=== PATIENT | female | born 1940 | race Caucasian/White ===

== ENCOUNTER 2019-09-19 10:08 | Outpatient (CLI) | payer MEDICARE, BC, SELFPAY ==
--- NOTE | 2019-09-19 10:14 | USCV_ITS ---
Neelam Nieves Age: 79 Gender: F : 1940 Exam Date: 09/19/2019 10:40 Ordering Phys: Yuko Bell Technologist: Les Bustillos Exam Location: [facility] [place] Indication: STENOSIS Risk Factors: Previous Vascular Surgery: Right Brachial BP: / Left Brachial BP: / Right Left Velocity (cm/s) Spectral Plaque Velocity (cm/s) Spectral Plaque Syst/Diast Broadening Syst/Diast Broadening 72.80/ 9.90 Prox CCA 67.50 / 14.50 42.50/ 8.80 Mid CCA 61.50 / 12.00 38.10/ 6.60 Distal CCA 42.70 / 9.20 89.50/ 16.60 Prox ICA 132.90/ 33.80 99.20/ 14.30 Mid ICA 116.00/ 27.80 75.00/ 16.50 Distal ICA 100.30/ 18.10 96.00 ECA 60.50 2.33 ICA/CCA 1.89 Antegrade Vertebral Antegrade 89.30/ 15.40 cm/s 21.60/ 7.50 cm/s Tri Subclavian Tri 175.6 140.7 0 0 CONCLUSIONS Right ICA stenosis <50%. Left ICA stenosis 50-69%. Mild atheromatous plaque left carotid bulb/ICA. Normal antegrade Doppler flow noted in the right vertebral artery. Normal antegrade Doppler flow noted in the left vertebral artery. Ang Stratton MD (Electronically Signed) Final Date: 19 September 2019 16:43 S
== END 2019-09-19 10:09 | disposition home or self-care (01) ==
LOC: RAD 10:09
PROVIDERS: PCP Family Medicine; Visit Provider Nurse Practitioner Family
DX: I65.23 Occlusion and stenosis of bilateral carotid arteries (principal)
CPT/HCPCS: 93880

== ENCOUNTER → 2020-10-02 12:45 | Outpatient (BNVA) | payer MEDICARE, BC, SELFPAY | PROVIDERS: Family Provider Family Medicine; PCP Family Medicine; Visit Provider Internal Medicine Cardiovascular Disease | DX: I48.91 Unspecified atrial fibrillation (principal); R53.1 Weakness; N18.9 Chronic kidney disease, unspecified; Z79.01 Long term (current) use of anticoagulants; R07.9 Chest pain, unspecified; I48.20 Chronic atrial fibrillation, unspecified | CPT/HCPCS: 80053; 84443; 85025 ==

== ENCOUNTER 2020-12-11 09:48 | Outpatient (CLI) | payer MEDICARE, BC, SELFPAY ==
--- NOTE | 2020-12-11 10:15 | USCV_ITS ---
Neelam Nieves Age: 80 Gender: F : 1940 Exam Date: 12/11/2020 10:05 Ordering Phys: Jil Couch MD ([email or web address]) Technologist: STEPHY [place]am [place] [facility] [place] Indication: a fib, other specified BP: 136 / 76 HR: 93 Rhythm: Sinus Technical Quality: Adequate MEASUREMENTS (Male / Female) Normal Values 2D ECHO LV Diastolic Diameter PLAX 4.4 cm 4.2 - 5.9 / 3.9 - 5.3 cm LV Systolic Diameter PLAX 3.2 cm IVS Diastolic Thickness 1.7 cm 0.6 - 1.0 / 0.6 - 0.9 cm IVS Systolic Thickness 2.1 cm LVPW Diastolic Thickness 1.5 cm 0.6 - 1.0 / 0.6 - 0.9 cm LVPW Systolic Thickness 2.3 cm RV Chamber Size 4.3 cm LVOT Diameter 2.0 cm LV Ejection Fraction 2D Teich 54.5 % LV Ejection Fraction MOD 2C 50.2 % LV Ejection Fraction 2C AL 50.5 % LA Diameter 3.8 cm LA Width 3.7 cm LA Height 4.5 cm RA Width 4.3 cm RA Height 5.0 cm Aorta at Sinotubular Diameter 2.6 cm DOPPLER AV Peak Velocity 116.0 cm/s LVOT Peak Velocity 57.0 cm/s AV Area Cont Eq vti 2.1 cm squared AV Area Cont Eq pk 1.6 cm squared TR Peak Velocity 354.0 cm/s TR Peak Gradient 50.1 mmHg TV Peak E Velocity 55.0 cm/s PV Peak Velocity 76.0 cm/s RV Acceleration Time 0.1 s RV Ejection Time 0.3 s RV AcT/ET 0.3 FINDINGS Left Ventricle Normal left ventricular size and systolic function, EF 65 % (visual). No regional wall motion abnormalities. Mild left ventricular hypertrophy. Right Ventricle Normal right ventricular size and systolic function. Right Atrium Moderately increased right atrial size. Left Atrium Moderately increased left atrial size. Mitral Valve Thickened mitral valve. Moderate mitral annular calcification. Moderate mitral valve regurgitation. Aortic Valve Thickened aortic valve. Tricuspid Valve No gross abnormalities noted.[id number] tricuspid valve regurgitation. Peak gradient of 50 with estimated PA pressure of 60mmHg. Mean pulmonary artery pressure of 35 mmHg Pulmonic Valve Structurally normal pulmonic valve. Pericardium No pericardial effusion. Aorta Normal aortic annulus size. CONCLUSIONS Normal left ventricular size and systolic function, EF 65 % (visual). No regional wall motion abnormalities. Mild left ventricular hypertrophy. Moderate biatrial enlargement. Thickened mitral valve. Moderate mitral annular calcification. Moderate mitral valve regurgitation. [id number] tricuspid valve regurgitation. Estimated PA pressure of 60mmHg. Moderate pulmonary hypertension with an estimated mean PA pressure of 35 mmHg. There is no pericardial effusion. No previous study is available for comparison. Dr Jil Couch MD [facility] (Electronically Signed) Final Date: 12 December 2020 00:31 S
== END 2020-12-11 09:49 | disposition home or self-care (01) ==
LOC: US 09:51
PROVIDERS: PCP Family Medicine; Visit Provider Internal Medicine Cardiovascular Disease
DX: I48.91 Unspecified atrial fibrillation (principal); I08.1 Rheumatic disorders of both mitral and tricuspid valves; I27.20 Pulmonary hypertension, unspecified
CPT/HCPCS: 93306

== ENCOUNTER 2021-04-03 11:33 | Emergency (ER) | payer MEDICARE, BC, SELFPAY ==
[2021-04-03 12:11] VITALS: BP 169/103; PULSE 67; RESP 22; TEMP 36.6; O2SAT 88; BMI 38.8
--- NOTE | 2021-04-03 12:39 | XRR_ITS ---
PROCEDURE INFORMATION: Exam: XR Chest Exam date and time: 04/03/2021 12:39 PM Age: 81 years old Clinical indication: Dyspnea TECHNIQUE: Imaging protocol: XR of the chest. Views: 1 view. COMPARISON: No relevant prior studies available. FINDINGS: Lungs: There is bibasilar atelectasis and small bilateral pleural effusions. Pleural spaces: See Lungs finding. Heart/Mediastinum: Unremarkable. No cardiomegaly. Bones/joints: Unremarkable. Soft tissues: Surgical clips are present in the right axilla. XR/XR chest 1V portable [id number] IMPRESSION: There is bibasilar atelectasis with small bilateral pleural effusions.
--- NOTE | 2021-04-03 12:46 | ED_ITS ---
HPI - SOB/Dyspnea General: Chief Complaint: Shortness of Breath/Dyspnea Stated Complaint: Dr. patel unsure what for/ something with heart Time Seen by Provider: 04/03/21 12:33 History of Present Illness: HPI Narrative: 81 year old female who presents to ER for shortness of breath. Reports shortness of breath has been going on for a couple of months and has been getting worse. Reports SOB when walking around her house and it feels like she's running a mile . Denies chest pain. Reports she was at her PCP today and they did an EKG and said there was fluid around heart. She is also seen by Dr. Couch who placed her on a heart monitor yesterday. Has a history of A. fib and is on Apixaban. Has been vaccinated against COVID. MD elicited complaint: shortness of breath Onset (ago): week(s) Associated symptoms: Deny abdominal pain, chest pain or fever(s) Review of Systems Const: Denies: fever(s), chills, body aches, change in appetite, fatigue or malaise ENMT: Denies: throat pain, ear or mastoid pain, nasal discharge or nasal congestion Card: Denies: chest pain Resp: Denies: dyspnea, productive cough or non-productive cough GI: Denies: abdominal pain : Denies: flank pain, difficulty voiding, dysuria, urinary frequency or urinary urgency Skin/Breast: Denies: rash or pruritus PFSH ED PFSH: Medical History Benign essential HTN Bilateral carotid artery disease Dyslipidemia (high LDL; low HDL) History of degenerative joint disease History of fibromyalgia History of hypertension Hx of breast cancer Hx of carotid artery stenosis Hx of hyperlipidemia Hx of obesity Obesity (BMI 35.0-39.9 without comorbidity) Surgical History History of bilateral knee replacement History of lumpectomy of right breast History of reconstruction of left breast Hx of cholecystectomy Hx of spinal surgery Family History Mother CAD (coronary artery disease) Father CAD (coronary artery disease) Sister Cancer Denies family history of Diabetes Clotting disorder Dementia Chronic kidney disease (CKD) Suicide Anesthesia complication Bleeding disorder Lung disease Stroke Social History Smoking and tobacco status: never smoked Alcohol intake: never Physical Exam Const: COMMON NORMALS: no acute distress GENERAL APPEARANCE: cooperative and comfortable ORIENTATION/CONSCIOUSNESS: Yes awake, Yes oriented to person, Yes oriented to place and Yes oriented to time Neck/C-Spine: COMMON NORMALS: no JVD Resp: COMMON NORMALS: normal respiratory effort, No retractions, No use of accessory muscles and clear to auscultation bilaterally AUSCULTATION: clear to auscultation bilaterally Cardio: COMMON NORMALS: no JVD, regular rate, regular rhythm and No murmurs present (Cardio) RATE: regular rate RHYTHM: regular rhythm GI: COMMON NORMALS: Soft to palpation and No hepatosplenomegaly present PALPATION: Yes Soft to palpation, No Tenderness to palpation present (GI), No G uarding due to palpation present (GI) and Yes No hepatosplenomegaly present Extremity: COMMON NORMALS: normal to inspection and capillary refill normal NARRATIVE EXTREMITY EXAM: Bilateral lower extremity 1+ edema. Neuro: SENSORIUM/ORIENTATION: Yes oriented to person, Yes oriented to place and Yes oriented to time Skin: COMMON NORMALS: no rashes or lesions noted GENERAL SKIN EXAM: no rashes or lesions noted Course Vital Signs: Vital signs: Vital Signs Temperature 97.9 F 04/03/21 12:11 Pulse Rate 80 04/03/21 15:44 Respiratory Rate 17 04/03/21 15:44 Blood Pressure 169/103 04/03/21 12:11 Pulse Oximetry 95 04/03/21 15:44 MDM - SOB/Dyspnea MDM Narrative: Medical decision making narrative: Patient again frustrated because of the length time it took to get labs back. Because of her body habitus she was an extremely difficult draw on the first blood was hemolyzed she refused to allow for the second draw. Her D-dimer was elevated we recommended a CTA of the chest to further evaluate. When she first came in her oxygen sat was somewhat low however that was due to poor placement of the oxygen sensor. I did have him do a home O2 evaluation and she did not qualify. COVID test is still pending the remainder the work-up was not completed including the CTA there is possibility she has a blood clot she refuses to stay for the remainder of the evaluation wishes to leave she is advised to return anytime for further to complete the evaluation. Lab Data: Labs: Lab Results 04/03/21 04/03/21 04/03/21 12:39 13:24 13:24 WBC 8.9 10^3/uL 10^3/ uL (4.0-10.0) RBC 4.70 10^6/uL 10^6 /uL (4.1-5.3) Hgb 14.1 g/dL g/dL (11.5-15.3) Hct 43.5 % % (37.0-47.0) MCV 92.6 fl fl (81-99) MCH 30.0 pg pg (28.0-34.0) MCHC 32.4 g/dL g/dL (30.0-36.0) RDW 12.9 % % (12.1-15.1) Plt Count 248 10^3/cmm 10^3 /cmm (130-400) MPV 10.5 fL H fL (7.4-10.4) Neut % (Auto) 60.9 % % Lymph % (Auto) 22.7 % % Swisher % (Auto) 12.3 % % Eos % (Auto) 2.8 % % Baso % (Auto) 0.8 % % Neut # (Auto) 5.41 10^3/uL 10^3 /uL (1.8-7.7) Lymph # (Auto) 2.0 10^3/uL 10^3/ uL (0.8-4.8) Swisher # (Auto) 1.1 10^3/uL H 10^ 3/uL (0.2-0.9) Eos # (Auto) 0.3 10^3/uL 10^3/ uL (0.0-0.8) Baso # (Auto) 0.1 10^3/uL 10^3/ uL (0.0-0.1) Nucleated RBC % (a uto) 0 % % Nucleated RBCs # 0.0 /100WBC /100W BC D-Dimer 1.45 ug/mIFEU H u g/mIFEU (0-0.59) Sodium Cancelled Potassium Cancelled Chloride Cancelled Carbon Dioxide Cancelled Anion Gap Cancelled BUN Cancelled Creatinine Cancelled GFR Calculation Cancelled Glucose Cancelled Calculated Osmolal ity Cancelled Lactic Acid Calcium Cancelled Total Bilirubin Cancelled AST Cancelled ALT Cancelled Alkaline Phosphata se Cancelled Creatine Kinase Cancelled C-Reactive Protein Cancelled NT-Pro-B Natriuret Pep Cancelled Total Protein Cancelled Albumin Cancelled Globulin Cancelled Procalcitonin Cancelled Coronavirus 229E ( PCR) SARS-CoV-2 (PCR) 04/03/21 04/03/21 13:55 15:20 WBC RBC Hgb Hct MCV MCH MCHC RDW Plt Count MPV Neut % (Auto) Lymph % (Auto) Swisher % (Auto) Eos % (Auto) Baso % (Auto) Neut # (Auto) Lymph # (Auto) Swisher # (Auto) Eos # (Auto) Baso # (Auto) Nucleated RBC % (a uto) Nucleated RBCs # D-Dimer Sodium Potassium Chloride Carbon Dioxide Anion Gap BUN Creatinine GFR Calculation Glucose Calculated Osmolal ity Lactic Acid 0.7 mmol/L mmol/L (0.5-2.2) Calcium Total Bilirubin AST ALT Alkaline Phosphata se Creatine Kinase C-Reactive Protein NT-Pro-B Natriuret Pep Total Protein Albumin Globulin Procalcitonin Coronavirus 229E ( PCR) Not detected (NOT DETECT) SARS-CoV-2 (PCR) Not detected (NOT DETECT) Discharge Plan Discharge Patient Disposition: Left Against Medical Advice Clinical Impression: Dyspnea, Benign essential HTN, Obesity (BMI 35.0-39.9 without comorbidity), Atrial fibrillation Condition: Stable Prescriptions: No Action atenolol 50 mg tablet 50 mg PO DAILY RF: 0 chlorthalidone 25 mg tablet 25 mg PO DAILY RF: 0 multivitamin Tablet 1 tab PO DAILY RF: 0 ibuprofen 200 mg capsule 200 mg PO Q6H PRN (Reason: Pain) RF: 0 furosemide [Lasix] 40 mg tablet 40 mg PO DAILY Qty: 90 RF: 1 potassium chloride 20 mEq tablet extended release 20 meq PO DAILY Qty: 90 RF: 1 amlodipine 5 mg tablet 5 mg PO DAILY Qty: 90 RF: 1 Eliquis 5 mg tablet 5 mg PO BID Qty: 60 RF: 5 aspirin 81 mg Tablet,Chewable 81 mg PO DAILY RF: 0 Referrals: Jose Camp DO [Primary Care Provider] - Coding Level of Care Code ED Development Technician for Chg Fwd Exam Detailed
[2021-04-03 14:21] LABS: D Dimer 1.45 ug/mIFEU (0-0.59)
[2021-04-03 14:28] LABS: Basophils # 0.1 10^3/uL (0.0-0.1); Basophils % 0.8 %; Eosinophils # 0.3 10^3/uL (0.0-0.8); Eosinophils % 2.8 %; Hematocrit 43.5 % (37.0-47.0); Hemoglobin 14.1 g/dL (11.5-15.3); Lymphocytes % 22.7 %; Mean Corpuscular HGB Conc 32.4 g/dL (30.0-36.0); Mean Corpuscular Volume 92.6 fl (81-99); Mean Platelet Volume 10.5 fL (7.4-10.4); Monocytes # 1.1 10^3/uL (0.2-0.9); Monocytes % 12.3 %; Neutrophils # 5.41 10^3/uL (1.8-7.7); Neutrophils % 60.9 %; Nucleated Red Blood Cells % 0 %; Platelet Count 248 10^3/cmm (130-400); Red Cell Distribution Width 12.9 % (12.1-15.1); White Blood Count 8.9 10^3/uL (4.0-10.0)
[2021-04-03 15:03] LABS: Lactic Sepsis W/Reflex 0.7 mmol/L (0.5-2.2)
[2021-04-03 15:36] VITALS: O2SAT 89; O2SAT 91
[2021-04-03 15:44] VITALS: PULSE 80; RESP 17; O2SAT 95
[2021-04-03 17:10] LABS: Adenovirus Not Detected (NOT DETECT); Chlamydia Pneumoniae Not Detected (NOT DETECT); Coronavirus 229E,HKU1,NL63,OC4 Not Detected (NOT DETECT); Human Metapneumovirus Not Detected (NOT DETECT); Human Rhinovirus/Enterovirus Not Detected (NOT DETECT); Influenza A Not Detected (NOT DETECT); Influenza A H1 Not Detected (NOT DETECT); Influenza A H1-2009 Not Detected (NOT DETECT); Influenza A H3 Not Detected (NOT DETECT); Influenza B Not Detected (NOT DETECT); Mycoplasma Pneumoniae Not Detected (NOT DETECT); Parainfluenza Virus Type 1 Not Detected (NOT DETECT); Parainfluenza Virus Type 2 Not Detected (NOT DETECT); Parainfluenza Virus Type 3 Not Detected (NOT DETECT); Parainfluenza Virus Type 4 Not Detected (NOT DETECT); Respiratory Syncytial Virus A Not Detected (NOT DETECT); Respiratory Syncytial Virus B Not Detected (NOT DETECT); SARS-COV-2 Not Detected (NOT DETECT)
== END 2021-04-03 15:43 | disposition left against medical advice (07) ==
PROVIDERS: Emergency Provider Family Medicine; PCP Family Medicine
DX: R06.00 Dyspnea, unspecified (principal); I10 Essential (primary) hypertension; I48.91 Unspecified atrial fibrillation; E66.9 Obesity, unspecified; Z68.38 Body mass index [BMI] 38.0-38.9, adult; Z53.21 Procedure and treatment not carried out due to patient leaving prior to being seen by health care provider; Z79.01 Long term (current) use of anticoagulants; Z79.82 Long term (current) use of aspirin; E78.5 Hyperlipidemia, unspecified; Z85.3 Personal history of malignant neoplasm of breast
CPT/HCPCS: 71045; 83605; 83880; 85025; 85378; 87635; 99283

== ENCOUNTER → 2021-11-27 11:47 | Outpatient (BNVA) | payer MEDICARE, BC, SELFPAY | PROVIDERS: PCP Family Medicine; Visit Provider Internal Medicine | DX: I10 Essential (primary) hypertension (principal); I48.91 Unspecified atrial fibrillation; Z86.79 Personal history of other diseases of the circulatory system; I07.1 Rheumatic tricuspid insufficiency; I34.0 Nonrheumatic mitral (valve) insufficiency | CPT/HCPCS: 93005; 99204 ==

== ENCOUNTER 2022-02-05 09:22 | Outpatient (CLI) | payer MEDICARE, BC, SELFPAY ==
--- NOTE | 2022-02-05 10:00 | USCV_ITS ---
Neelam Nieves Age: 81 Gender: F : 1940 Exam Date: 02/05/2022 09:40 Ordering Phys: Trenton Mensah M.D ([email or web address]) Technologist: SHERRILL [place] [facility] [place] Indication: Stenosis Risk Factors: Previous Vascular Surgery: Right Brachial BP: / Left Brachial BP: / Right Left Velocity (cm/s) Spectral Plaque Velocity (cm/s) Spectral Plaque Syst/Diast Broadening Syst/Diast Broadening 43.50/ 10.10 Prox CCA 42.70 / 13.80 31.00/ 9.10 Mid CCA 23.70 / 10.50 24.80/ 8.10 Distal CCA 68.40 / 13.10 50.70/ 11.70 Prox ICA 113.60/ 40.80 32.00/ 9.10 Mid ICA 149.90/ 35.50 29.90/ 10.10 Distal ICA 148.60/ 36.80 42.70 ECA 57.80 1.17 ICA/CCA 2.19 Antegrade Vertebral Antegrade 81.60/ 23.30 cm/s 135.4/ 26.30 cm/s 0 Tri Subclavian Tri 62.40 42.70 FINDINGS Moderate heterogenous plaques of the right bifurcation. Moderate to heavy heterogenous plaques at the left bifurcation and ICA. Antegrade flow in the vertebral arteries bilaterally Normal Doppler flow velocities in the external carotid and subclavian arteries bilaterally CONCLUSIONS Moderate heterogenous plaques of the right bifurcation with Doppler features suggesting less than 50% stenosis. Moderate to heavy heterogenous plaques at the left bifurcation and ICA with Doppler features suggesting 50 to 69% stenosis on the left side. Intimal thickening in the common carotid arteries bilaterally. Compared to the study from 09/19/2019, there may not be significant change Dr Jil Couch MD [facility] (Electronically Signed) Final Date: 18 February 2022 14:10 S
--- NOTE | 2022-02-05 11:00 | USCV_ITS ---
Neelam Nieves Age: 81 Gender: F : 1940 Exam Date: 02/05/2022 10:13 Ordering Phys: Trenton Mensah M.D ([email or web address]) Technologist: Meena Martinez Exam Location: [facility] [place] Indication: SOB, CP BP: 139 / 70 HR: 84 Rhythm: Other Technical Quality: Adequate MEASUREMENTS (Male / Female) Normal Values 2D ECHO LV Diastolic Diameter PLAX 4.2 cm 4.2 - 5.9 / 3.9 - 5.3 cm LV Systolic Diameter PLAX 2.5 cm IVS Diastolic Thickness 1.7 cm 0.6 - 1.0 / 0.6 - 0.9 cm IVS Systolic Thickness 2.0 cm LVPW Diastolic Thickness 1.2 cm 0.6 - 1.0 / 0.6 - 0.9 cm LVPW Systolic Thickness 1.8 cm LVOT Diameter 2.1 cm LV Ejection Fraction 2D Teich 70.9 % LV Ejection Fraction MOD 2C 32.5 % LV Ejection Fraction 2C AL 36.4 % LA Diameter 5.1 cm LA Width 3.9 cm LA Height 7.3 cm RA Width 4.4 cm RA Height 3.1 cm Aorta at Sinotubular Diameter 3.0 cm IVC Diameter 1.7 cm M-MODE MV E Point Septal Separation 1.2 cm DOPPLER AV Peak Velocity 77.0 cm/s LVOT Peak Velocity 79.0 cm/s AV Area Cont Eq vti 3.3 cm squared AV Area Cont Eq pk 3.4 cm squared MV Peak Velocity 180.0 cm/s MV Area PHT 5.1 cm squared Mitral E to A Ratio 8.3 MV E' Velocity 75.5 cm/s Mitral E to MV E' Ratio 10.2 Mitral E to LV E' Lateral Ratio 8.6 Mitral E to LV E' Septal Ratio 12.5 TR Peak Velocity 272.0 cm/s TR Peak Gradient 29.6 mmHg Right Atrial Pressure 3.0 mmHg Pulmonary Artery Systolic Pressu 32.6 mmHg RV Acceleration Time 0.1 s RV Ejection Time 0.4 s RV AcT/ET 0.3 FINDINGS Left Ventricle Left ventricle is normal in size. LV systolic function is mildly reduced with EF of 45-50%. Mild global hypokinesis. Right Ventricle RV is normal in size and function. Right Atrium Normal in size Left Atrium Dilated Mitral Valve Mild mitral annular calcification is seen. Moderate mitral regurgitation. Aortic Valve Aortic valve is thickened. No significant stenosis. Mild to moderate aortic regurgitation. Tricuspid Valve Moderate tricuspid regurgitation. RVSP is 45-50mmHg. This is consistent with moderate pulmonary hypertension. Pulmonic Valve Not well visualized. Pericardium Normal Aorta Normal in size IVC IVC appears to be normal CONCLUSIONS Technically limited quality echocardiogram because of poor ultrasonic windows. LV systolic function is mildly reduced with EF of 45-50%. Left atrial dilation Mild mitral annular calcification is seen. Moderate mitral regurgitation Mild to moderate aortic regurgitation Moderate tricuspid regurgitation. Moderate pulmonary hypertension Compared to prior echocardiogram from 11/2020, LV systolic function has decreased and is mildly reduced now Trenton Mensah MD (Electronically Signed) Final Date: 14 February 2022 11:08 S
== END 2022-02-05 09:23 | disposition home or self-care (01) ==
LOC: RAD 09:23
PROVIDERS: PCP Family Medicine; Visit Provider Internal Medicine
DX: I77.9 Disorder of arteries and arterioles, unspecified (principal); I65.23 Occlusion and stenosis of bilateral carotid arteries; I08.3 Combined rheumatic disorders of mitral, aortic and tricuspid valves
CPT/HCPCS: 93306; 93880

== ENCOUNTER 2022-07-09 10:06 | Emergency (ER) | payer MEDICARE, BC, SELFPAY ==
[2022-07-09 10:49] VITALS: BP 178/118; PULSE 69; TEMP 36.6; O2SAT 97; BMI 38.0
--- NOTE | 2022-07-09 10:58 | XR_ITS ---
WS: [id number] Portable AP upright chest, 07/09/2022 Clinical Data: AFIB Comparison: Portable chest, 04/03/2021 Findings: No nodules, masses or effusions are seen. The heart is enlarged. The pulmonary vascularity is not increased. No pneumonia or pneumothorax is seen. The right diaphragm is elevated. The aortic a rch and descending thoracic aorta show calcification and tortuosity. There are clips in the right upp er quadrant from a cholecystectomy. There are clips in the right axilla from surgery. The anterior ce rvical disc fusion is visible. XR/XR chest 1V portable [id number] Impression: 1. Cardiomegaly and atherosclerosis. 2. Elevation of the right diaphragm.
[2022-07-09 12:07] LABS: Basophils % 0.5 %; Eosinophils # 0.2 10^3/uL (0.0-0.8); Eosinophils % 2.3 %; Hematocrit 40.4 % (37.0-47.0); Hemoglobin 12.9 g/dL (11.5-15.3); Lymphocytes # 2.2 10^3/uL (0.8-4.8); Lymphocytes % 29.1 %; Mean Corpuscular HGB Conc 31.9 g/dL (30.0-36.0); Mean Corpuscular Hemoglobin 30.3 pg (28.0-34.0); Mean Corpuscular Volume 94.8 fl (81-99); Monocytes # 0.9 10^3/uL (0.2-0.9); Monocytes % 11.8 %; Neutrophils # 4.31 10^3/uL (1.8-7.7); Nucleated Red Blood Cells % 0 %; Platelet Count 231 10^3/cmm (130-400); Red Blood Count 4.26 10^6/uL (4.1-5.3); Red Cell Distribution Width 13.3 % (12.1-15.1); White Blood Count 7.7 10^3/uL (4.0-10.0)
[2022-07-09 12:29] LABS: Add Urine Microscopic? NO; Charge for UA Resulting for Rev
[2022-07-09 12:33] LABS: Alanine Aminotransferase 13 U/L (0-33); Albumin Level 4.4 g/dL (3.5-5.2); Alkaline Phosphatase 73 U/L (35-105); Anion Gap 13.2 (5-19); Aspartate Amino Transferase 18 U/L (0-32); Blood Urea Nitrogen 18 mg/dL (8-23); Calcium 8.8 mg/dL (8.5-10.5); Carbon Dioxide 27 mmol/L (22-29); Chloride 103 mmol/L (98-107); Creatinine Clr Calc Pharmacy 52.6735; Globulin 2.1 g/dL (1.3-4.6); Glucose 90 mg/dL (65-115); NT Pro B Type Natriuretic Pept 4836 pg/mL (0-450); Osmolality Calculated 289 mOsm/kg (285-295); Potassium 4.2 mmol/L (3.5-5.1); Sodium 139 mmol/L (136-145); Total Bilirubin 1.7 mg/dL (0.15-1.2); Total Protein 6.5 g/dL (6.6-8.7)
[2022-07-09 12:37] LABS: Bilirubin Urine Neg (Negative); Blood Urine Neg (Negative); Glucose Urine UA Norm (Normal); Ketones Urine Negative (Negative); Leukocyte Esterase Urine Negative (Negative); Nitrate Urine Negative (Negative); Protein Urine Neg (Negative); Specific Gravity, Urine 1.015 (1.005-1.030); Urine Appearance Clear (CLEAR); Urine Color Yellow (Yellow); Urobilinogen Urine Neg (Negative); pH Urine 5 (5-7)
[2022-07-09 12:52] VITALS: BP 182/114; PULSE 75; O2SAT 95
--- NOTE | 2022-07-09 13:47 | ECG_ITS ---
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 Measurements Intervals [place] Rate: 82 P: 0 CO: 0 QRS: -60 QRSD: 113 T: 0 QT: 349 QTc: 409 Interpretive Statements ATRIAL FIBRILLATION LEFT AXIS DEVIATION [QRS AXIS < -30] ANTEROSEPTAL MYOCARDIAL INFARCTION , OF INDETERMINATE AGE [40+ ms Q WAVE IN V1-V4] No previous ECG available for comparison Electronically Signed On 07-09-2022 14:48:46 CDT by Gilbert Esquivel M.D. [id number]
[2022-07-09 13:49] VITALS: BP 199/120; PULSE 92; O2SAT 95
--- NOTE | 2022-07-09 13:52 | W.ED.ARRPALP ---
HPI - Arrhythmia/Palpitations General: Chief Complaint: Arrhythmia/Palpitations Stated Complaint: Ball sent for heart issues Time Seen by Provider: 07/09/22 13:45 Source: patient Mode of arrival: ambulatory History of Present Illness: 82-year-old female with a known history of atrial fibrillation and is on Eliquis and atenolol. She presents emergency room from primary care office because of concern about the A-fib. She her rate is well controlled at this time she has noticed some increased swelling in her legs and has been a little bit more short of breath patient has significant baseline dementia her daughter is at the bedside and offer some history. She is denies any chest pain. MD complaint: rapid heart beat Duration: intermittent Severity: mild Arrhythmia history: atrial fibrillation and other Associated symptoms: Deny anxiety, cough, diaphoresis, muscle cramps, nausea, paresthesias, pre-syncope, short of breath or syncope Review of Systems Const: Denies: fever(s), chills, fatigue, malaise or diaphoresis ENMT: Denies: throat pain, ear or mastoid pain, nasal discharge or nasal congestion Card: Reports: palpitations, irregular heart rhythm, edema and swelling of feet/ankles; Denies: chest pain, syncope or pre-syncope Resp: Reports: dyspnea; Denies: productive cough or non-productive cough GI: Denies: abdominal pain or nausea : Denies: flank pain, difficulty voiding, dysuria, urinary frequency or urinary urgency Musc: Reports: back pain and extremity pain; Denies: muscle cramps Skin/Breast: Denies: rash or pruritus Psych: Denies: anxiety PFSH ED PFSH: Medical History Benign essential HTN Bilateral carotid artery disease Dyslipidemia (high LDL; low HDL) History of degenerative joint disease History of fibromyalgia History of hypertension Hx of breast cancer Hx of carotid artery stenosis Hx of hyperlipidemia Hx of obesity Obesity (BMI 35.0-39.9 without comorbidity) Surgical History History of bilateral knee replacement History of lumpectomy of right breast History of reconstruction of left breast Hx of cholecystectomy Hx of spinal surgery Family History Mother CAD (coronary artery disease) Father CAD (coronary artery disease) Sister Cancer Denies family history of Diabetes Clotting disorder Dementia Chronic kidney disease (CKD) Suicide Anesthesia complication Bleeding disorder Lung disease Stroke Social History Smoking and tobacco status: never smoked Alcohol intake: never Substance/Drug Use: never Physical Exam Const: GENERAL APPEARANCE: cooperative and comfortable ORIENTATION/CONSCIOUSNESS: Yes awake, Yes oriented to person, Yes oriented to place and Yes oriented to time HENMT: COMMON NORMALS: normocephalic, atraumatic and hearing grossly normal bilaterally HEAD & SCALP: normocephalic and atraumatic Resp: COMMON NORMALS: normal respiratory effort, No retractions, No use of accessory muscles and clear to auscultation bilaterally AUSCULTATION: clear to auscultation bilaterally Cardio: COMMON NORMALS: No murmurs present (Cardio) RHYTHM: abnormal rhythm irregularly irregular GI: COMMON NORMALS: Soft to palpation and No hepatosplenomegaly present AUSCULTATION: Yes normoactive bowel sounds PALPATION: Yes Soft to palpation, No Tenderness to palpation present (GI), No Guarding due to palpation present (GI) and Yes No hepatosplenomegaly present : COMMON NORMALS: Yes no CVA tenderness BLADDER/KIDNEY EXAM: Yes no CVA tenderness Back/Pelvis: COMMON NORMALS: no CVA tenderness Extremity: COMMON NORMALS: normal to inspection, capillary refill normal, no clubbing, cyanosis or edema, no calf tenderness and no pedal edema Neuro: SENSORIUM/ORIENTATION: Yes oriented to person, Yes oriented to place and Yes oriented to time Skin: COMMON NORMALS: no rashes or lesions noted GENERAL SKIN EXAM: no rashes or lesions noted Course Vital Signs: Vital signs: Vital Signs Temperature 98 F 07/09/22 10:49 Pulse Rate 87 07/09/22 15:46 Respiratory Rate 18 07/09/22 15:46 Blood Pressure 157/98 07/09/22 15:46 Pulse Oximetry 96 07/09/22 15:46 Oxygen Delivery Me thod Room Air 07/09/22 13:49 MDM - Arrhythmia/Palpitations Medical Decision Making Cardiac enzymes negative. Is in A-fib but rate is well controlled at this time. Stop atenolol, increase amlodipine to 5 mg daily add lisinopril 20 mg daily continue all other previously prescribed medications. Continue Eliquis as well. Return if is further chest pain. EKG and cardiac enzymes unremarkable. Follow-up with your doctor within the next week. Medical Records I reviewed the patient's medical records. Lab Data I reviewed the patient's lab results. 07/09/22 11:54 07/09/22 11:54 Radiology Impressions Chest X-Ray 07/09/22 10:58 Impression: 1. Cardiomegaly and atherosclerosis. 2. Elevation of the right diaphragm. Laboratory Results WBC 7.7 10^3/uL (4.0-10.0) 07/09/22 11:54 RBC 4.26 10^6/uL (4.1-5.3) 07/09/22 11:54 Hgb 12.9 g/dL (11.5-15.3) 07/09/22 11:54 Hct 40.4 % (37.0-47.0) 07/09/22 11:54 MCV 94.8 fl (81-99) 07/09/22 11:54 MCH 30.3 pg (28.0-34.0) 07/09/22 11:54 MCHC 31.9 g/dL (30.0-36.0) 07/09/22 11:54 RDW 13.3 % (12.1-15.1) 07/09/22 11:54 Plt Count 231 10^3/cmm (130-400) 07/09/22 11:54 MPV 10.0 fL (7.4-10.4) 07/09/22 11:54 Neut % (Auto) 56.0 % 07/09/22 11:54 Lymph % (Auto) 29.1 % 07/09/22 11:54 [place] % (Auto) 11.8 % 07/09/22 11:54 Eos % (Auto) 2.3 % 07/09/22 11:54 Baso % (Auto) 0.5 % 07/09/22 11:54 Neut # (Auto) 4.31 10^3/uL (1.8-7.7) 07/09/22 11:54 Lymph # (Auto) 2.2 10^3/uL (0.8-4.8) 07/09/22 11:54 [place] # (Auto) 0.9 10^3/uL (0.2-0.9) 07/09/22 11:54 Eos # (Auto) 0.2 10^3/uL (0.0-0.8) 07/09/22 11:54 Baso # (Auto) 0.0 10^3/uL (0.0-0.1) 07/09/22 11:54 Nucleated RBC % (auto) 0 % 07/09/22 11:54 Nucleated RBCs # 0.0 /100WBC 07/09/22 11:54 Sodium 139 mmol/L (136-145) 07/09/22 11:54 Potassium 4.2 mmol/L (3.5-5.1) 07/09/22 11:54 Chloride 103 mmol/L (98-107) 07/09/22 11:54 Carbon Dioxide 27 mmol/L (22-29) 07/09/22 11:54 Anion Gap 13.2 (5-19) 07/09/22 11:54 BUN 18 mg/dL (8-23) 07/09/22 11:54 Creatinine 0.9 mg/dL (0.5-0.9) 07/09/22 11:54 GFR Calculation Not Reportable 07/09/22 11:54 Glucose 90 mg/dL (65-115) 07/09/22 11:54 Calculated Osmolality 289 mOsm/kg (285-295) 07/09/22 11:54 Calcium 8.8 mg/dL (8.5-10.5) 07/09/22 11:54 Total Bilirubin 1.7 mg/dL (0.15-1.2) H 07/09/22 11:54 AST 18 U/L (0-32) 07/09/22 11:54 ALT 13 U/L (0-33) 07/09/22 11:54 Alkaline Phosphatase 73 U/L (35-105) 07/09/22 11:54 NT-Pro-B Natriuret Pep 4836 pg/mL (0-450) H 07/09/22 11:54 Total Protein 6.5 g/dL (6.6-8.7) L 07/09/22 11:54 Albumin 4.4 g/dL (3.5-5.2) 07/09/22 11:54 Globulin 2.1 g/dL (1.3-4.6) 07/09/22 11:54 Urine Color Yellow (Yellow) 07/09/22 11:54 Urine Appearance Clear (CLEAR) 07/09/22 11:54 Urine pH 5 (5-7) 07/09/22 11:54 Ur Specific Stanton 1.015 (1.005-1.030) 07/09/22 11:54 Urine Protein Neg (Negative) 07/09/22 11:54 Urine Glucose (UA) Norm (Normal) 07/09/22 11:54 Urine Ketones Negative (Negative) 07/09/22 11:54 Urine Blood Neg (Negative) 07/09/22 11:54 Urine Nitrate Negative (Negative) 07/09/22 11:54 Urine Bilirubin Neg (Negative) 07/09/22 11:54 Urine Urobilinogen Neg mg/dL (Negative) 07/09/22 11:54 Ur Leukocyte Esterase Negative (Negative) 07/09/22 11:54 Discharge Plan Discharge Patient Disposition: Home Clinical Impression: Atrial fibrillation, Benign essential HTN Condition: Stable Prescriptions: New amlodipine 10 mg tablet 10 mg PO DAILY Qty: 30 0RF Toprol XL 50 mg tablet extended release 24 hr 50 mg PO DAILY Qty: 30 0RF lisinopril 20 mg tablet 20 mg PO DAILY Qty: 30 0RF Discontinued atenolol 50 mg tablet 50 mg PO BEDTIME No Action chlorthalidone 25 mg tablet 25 mg PO DAILY multivitamin Tablet 1 tab PO DAILY ibuprofen [Advil] 200 mg tablet 200 mg PO Q6H PRN (Reason: Pain) furosemide [Lasix] 40 mg tablet 40 mg PO DAILY PRN (Reason: Edema) potassium chloride 20 mEq tablet extended release 20 meq PO DAILY Qty: 90 1RF amlodipine 5 mg tablet 5 mg PO DAILY Qty: 90 1RF Eliquis 5 mg tablet 5 mg PO DAILY Discharge Orders: Discharge ED (Routine); Ordered 07/09/22 Ordered By: Aldo Farrell Referrals: Jose Camp DO [Primary Care Provider] - Discharge Diet: Usual diet Discharge Activity: Increase activity as tolerated Patient Instructions: Opioid Safety, Pain Management Activity Restrictions/Additional Instructions: You were seen today with concerns about your atrial fibrillation. When you arrived. Blood pressure is markedly elevated. Recommend that you stop the atenolol and replace it with metoprolol which will provide better long-term coverage for your atrial fibrillation in addition you should increase your amlodipine to 10 mg daily and add lisinopril 20 mg daily. Continue your other medications as previously prescribed. Follow-up with your doctor within the next week. 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
[2022-07-09] MEDS: FUROsemide 10 mg/mL SDV 10mL 60 MG IVP (14:31)
[2022-07-09] MEDS: hyDRALAzine 20 mg/mL INJ 1 mL IVP (14:32)
[2022-07-09] MEDS: labetalol 5 mg/mL SDV 20mL 10 MG IVP (14:32)
[2022-07-09] MEDS: lisinopril 20 mg Tablet PO (14:32)
[2022-07-09] MEDS: amlodipine 5 mg Tablet PO (14:32)
[2022-07-09 14:41] VITALS: BP 182/102; PULSE 82; O2SAT 94
[2022-07-09 15:21] VITALS: BP 163/75; PULSE 89; O2SAT 95
[2022-07-09 15:46] VITALS: BP 157/98; PULSE 87; RESP 18; O2SAT 96
== END 2022-07-09 15:47 | disposition home or self-care (01) ==
PROVIDERS: Emergency Provider Family Medicine; PCP Family Medicine
DX: I48.91 Unspecified atrial fibrillation (principal); I10 Essential (primary) hypertension; Z79.01 Long term (current) use of anticoagulants; E78.5 Hyperlipidemia, unspecified; Z85.3 Personal history of malignant neoplasm of breast
CPT/HCPCS: 36415; 71045; 80053; 81003; 83880; 85025; 93005; 96374; 96375; 99285; J0360; J1940; J3490

== ENCOUNTER → 2022-09-25 12:35 | Outpatient (BNVA) | payer MEDICARE, BC, SELFPAY | PROVIDERS: PCP Family Medicine; Visit Provider Internal Medicine | DX: I10 Essential (primary) hypertension (principal); I48.91 Unspecified atrial fibrillation; I07.1 Rheumatic tricuspid insufficiency; I34.0 Nonrheumatic mitral (valve) insufficiency; I65.23 Occlusion and stenosis of bilateral carotid arteries; Z79.01 Long term (current) use of anticoagulants | CPT/HCPCS: 99214 ==

== ENCOUNTER 2024-02-28 15:18 | Emergency (ER) | payer MEDICARE, BC, SELFPAY ==
[2024-02-28 15:19] VITALS: BP 0/0; PULSE 0; O2SAT 0
--- NOTE | 2024-02-28 15:20 | ED_ITS ---
HPI - General Adult General: Stated complaint: CPR Time Seen by Provider: 02/28/24 15:19 Source: EMS Mode of arrival: EMS History of Present Illness: 83-year-old female is brought in with ca rdiac arrest per EMS patient complained of chest pain earlier today they states patient was down when they arrived family was doing CPR EMS states they have been coding her for an hour and a half they have given her epi along with amiodarone and shocked her. Patient's had no ROSC Related Data Home Medications Medication Instructions Recorded Confirmed chlorthalidone 25 mg tablet 25 mg PO DAILY 09/29/19 09/25/22 multivitamin 1 tab PO DAILY 09/29/19 09/25/22 furosemide 40 mg tablet (Lasix) 40 mg PO DAILY PRN Edema 11/27/21 09/25/22 ibuprofen 200 mg tablet (Advil) 200 mg PO Q6H PRN Pain 11/27/21 09/25/22 atenolol 50 mg tablet 50 mg PO BID 09/25/22 09/25/22 Previous Rx's Medication Instructions Recorded amlodipine 5 mg tablet 5 mg PO DAILY #90 tabs 04/04/21 apixaban 5 mg tablet (Eliquis) 5 mg PO BID #180 tabs 03/19/23 Allergies Allergy/AdvReac Type Severity Reaction Status Date / Time No Known Allergies Allergy Verified 09/25/22 12:47 Review of Systems General: Reports: ROS unobtainable due to medical condition PFS ED PFSH: Medical History Obesity (BMI 35.0-39.9 without comorbidity) Dyslipidemia (high LDL; low HDL) Benign essential HTN Bilateral carotid artery disease Hx of carotid artery stenosis History of hypertension History of degenerative joint disease Hx of breast cancer Hx of hyperlipidemia History of fibromyalgia Hx of obesity Surgical History History of reconstruction of left breast Hx of cholecystectomy History of bilateral knee replacement Hx of spinal surgery History of lumpectomy of right breast Family History Mother CAD (coronary artery disease) Father CAD (coronary artery disease) Sister Cancer Denies family history of Diabetes Clotting disorder Dementia Chronic kidney disease (CKD) Suicide Anesthesia complication Bleeding disorder Lung disease Stroke Social History Smoking and tobacco/nicotine status: never used tobacco/nicotine Alcohol intake: never Substance/Drug Use: never Physical Exam Const: COMMON NORMALS: negative for patient oriented x3 HENMT: COMMON NORMALS: normocephalic and atraumatic HEAD & SCALP: normocephalic and atraumatic Chest: COMMONS NORMALS: normal inspection of the chest Cardio: OTHER: And cardiac arrest CPR in progress GI: INSPECTION: Yes normal to inspection Extremity: COMMON NORMALS: normal to inspection Neuro: COMMON NORMALS: negative for patient oriented x3 MDM - General Adult Medical Decision Making Patient presents here with cardiac arrest patient has been coded for roughly an hour and 1/2 to 2 hours by EMS once patient arrived I did a bedside cardiac ultrasound she has no cardiac activity patient's code was called time of is 1519 No radiology studies performed this visit Discharge Plan Discharge Prescriptions: No Action chlorthalidone 25 mg tablet 25 mg PO DAILY multivitamin Tablet 1 tab PO DAILY ibuprofen [Advil] 200 mg tablet 200 mg PO Q6H PRN (Reason: Pain) furosemide [Lasix] 40 mg tablet 40 mg PO DAILY PRN (Reason: Edema) atenolol 50 mg tablet 50 mg PO BID amlodipine 5 mg tablet 5 mg PO DAILY Qty: 90 1RF Eliquis 5 mg tablet 5 mg PO BID Qty: 180 3RF Coding Level of Care Code ED [employer] Sales Manager for Kai Bobo
[2024-02-28 15:22] VITALS: BP 0/0; PULSE 0; RESP 0; O2SAT 0
--- NOTE | 2024-02-28 16:10 | PC.NURSE ---
[facility] contacted and has released patient to families home of choosing. [facility] coroner contacted and has release patient to home of families choosing. Family is in the room with patient now.
--- NOTE | 2024-02-28 17:05 | PC.NURSE ---
UPON ARRIVAL PT WAS ACTIVELY HAVING CPR PERFORMED BY A DEVICE SIMILAR TO A [facility] AND HAD AN ORAL AIRWAY IN PLACE THAT WAS PLACED BY EMS. PT HAD NO PULSE. PROVIDER CHECKED FOR CARDIAC ACTIVITY AND DETERMINED THERE WAS NO CARDIAC ACTIVITY PRESENT. NO MEDICATIONS WERE ADMINISTERED AT THIS FACILITY. PROVIDER TALKED TO FAMILY IN THE LAB DRAW ROOM AND THEN BROUGHT THEM BACK TO SEE PT. 3 MORE FAMILY MEMBERS ARRIVED AND THIS RN TALKED TO THEM AND BROUGHT THEM BACK TO THE ROOM. ORAL AIRWAY REMOVED BY [employer] CONSULTANT. FAMILY IS CURRENTLY STILL PRESENT IN THE ROOM AT THIS TIME.
== END 2024-02-28 15:22 | disposition expired ==
PROVIDERS: Emergency Provider Emergency Medicine; PCP Family Medicine
DX: I46.9 Cardiac arrest, cause unspecified (principal); Z79.01 Long term (current) use of anticoagulants; E78.5 Hyperlipidemia, unspecified; I10 Essential (primary) hypertension; Z85.3 Personal history of malignant neoplasm of breast; I25.10 Atherosclerotic heart disease of native coronary artery without angina pectoris
CPT/HCPCS: 99283; 99291